=== PATIENT | female | born 1960 | race Two or more races ===

== ENCOUNTER → 2019-07-20 | Emergency (ER) | payer OTHER ==
[~2019-07-20] VITALS: Ht 167.6 cm; Wt 68.9 kg
[~2019-07-20] MED LIST: PREMPRO 0.3 MG1 EACH PO
== END | disposition left against medical advice (07) ==
LOC: ER 18:19
DX: Z53.20 Procedure and treatment not carried out because of patient's decision for unspecified reasons (principal)